=== PATIENT | male | born 1945 | race Caucasian/White ===

== ENCOUNTER → 2020-07-12 10:57 | Outpatient (CLI) | payer MEDICARE, SELFPAY ==
--- NOTE | ~2020-07-12 | XR_ITS ---
EXAMINATION: XR abdomen/kub 1V INDICATION: Unspecified abdominal pain TECHNIQUE: Supine views of the abdomen were obtained on 2 radiographs. COMPARISON: None FINDINGS: There are no dilated loops of bowel. The visualized lung bases are clear. No abnormal calci fications are identified. There is moderate osteoarthritis of the hips. IMPRESSION: 1. No radiographic correlate for the patient's symptoms. Reviewed, dictated and finalized at location A. ELLANEOUS MACHINE OPERATOR
== END ==
PROVIDERS: PCP Internal Medicine; Visit Provider Internal Medicine
DX: R10.9 Unspecified abdominal pain (principal)
CPT/HCPCS: 74018

== ENCOUNTER 2020-07-16 15:16 | Outpatient (CLI) | payer MEDICARE, SELFPAY | END 2020-07-16 15:17 | disposition home or self-care (01) | PROVIDERS: PCP Internal Medicine | DX: Z23 Encounter for immunization (principal) | CPT/HCPCS: 0001A; 91300 ==

== ENCOUNTER 2020-08-06 15:14 | Outpatient (CLI) | payer MEDICARE, SELFPAY | END 2020-08-06 15:15 | disposition home or self-care (01) | LOC: ANHCOVIDVC 15:14 | PROVIDERS: PCP Internal Medicine | DX: Z23 Encounter for immunization (principal) | CPT/HCPCS: 0002A; 91300 ==

== ENCOUNTER 2022-01-23 10:40 | Outpatient (CLI) | payer MEDICARE, SELFPAY ==
[2022-01-23 21:26] LABS: Albumin Level 4.6 g/dL (3.5-5.1)
[2022-01-23 21:27] LABS: Alanine Aminotransferase 23 U/L (6-50); Alkaline Phosphatase 62 U/L (38-126); Anion Gap 11 mmol/L (8-16); Aspartate Amino Transferase 40 U/L (17-59); Bilirubin,Total 0.7 mg/dL (0.2-1.3); Blood Urea Nitrogen 21 mg/dL (9-20); Calcium 8.6 mg/dL (8.4-10.2); Carbon Dioxide 32 mmol/L (22-30); Chloride 96 mmol/L (98-107); Cholesterol 223 mg/dL (0-200); Estimated Glomerular Filt Rate > 60; Glucose 179 mg/dL (65-110); HDL Direct 57 mg/dL; Potassium 5.3 mmol/L (3.4-5.0); Sodium 139 mmol/L (137-145); Triglycerides 126 mg/dL (<150)
[2022-01-23 21:30] LABS: LDL Cholesterol Direct 135 mg/dL
== END 2022-01-23 10:41 | disposition home or self-care (01) ==
LOC: ANHGOSHLAB 10:43
PROVIDERS: PCP Family Medicine; Visit Provider Family Medicine
DX: E78.5 Hyperlipidemia, unspecified (principal); I10 Essential (primary) hypertension
CPT/HCPCS: 36415; 80053; 80061

== ENCOUNTER 2023-02-12 11:43 | Outpatient (CLI) | payer MEDICARE, SELFPAY ==
[2023-02-12 19:27] LABS: Alanine Aminotransferase 24 U/L (6-50); Albumin Level 4.4 g/dL (3.5-5.1); Alkaline Phosphatase 62 U/L (38-126); Anion Gap 3 mmol/L (8-16); Aspartate Amino Transferase 33 U/L (17-59); Bilirubin,Total 0.6 mg/dL (0.2-1.3); Blood Urea Nitrogen 19 mg/dL (9-20); Calcium 9.2 mg/dL (8.4-10.2); Carbon Dioxide 36 mmol/L (22-30); Chloride 100 mmol/L (98-107); Cholesterol 237 mg/dL (0-200); Estimated Glomerular Filt Rate 59; Glucose 127 mg/dL (65-110); HDL Direct 39 mg/dL; Potassium 4.9 mmol/L (3.4-5.0); Sodium 139 mmol/L (137-145); Triglycerides 165 mg/dL (<150)
[2023-02-12 19:38] LABS: LDL Cholesterol Direct 143 mg/dL
[2023-02-12 21:35] LABS: Hemoglobin A1C 6.3 % (<5.7)
== END 2023-02-12 11:44 | disposition home or self-care (01) ==
LOC: ANHGOSHLAB 11:44
PROVIDERS: PCP Family Medicine; Visit Provider Family Medicine
DX: R73.9 Hyperglycemia, unspecified (principal); Z13.220 Encounter for screening for lipoid disorders; Z13.228 Encounter for screening for other metabolic disorders
CPT/HCPCS: 36415; 80053; 80061; 83036

== ENCOUNTER 2023-07-22 13:34 | Emergency (ER) | payer MEDICARE, SELFPAY ==
[2023-07-22 13:47] VITALS: BP 173/89; PULSE 62; RESP 18; TEMP 36.4; O2SAT 96
--- NOTE | 2023-07-22 14:11 | ED.LOWEXIN ---
HPI - Extremity Injury (Lower) General Chief Complaint: Extremity Injury, Lower Stated Complaint: toe pain Source: patient Mode of arrival: ambulatory Limitations: no limitations History of Present Illness HPI Narrative: 78-year-old male presented with daughter for complaint of left foot pain, onset today. Daughter states the left great toe and 2nd toe have some swelling and redness. Great toe has fungal infection. They have been applying Neosporin. Denies drainage, foot swelling, numbness, tingling, or weakness. Related Data Home Medications Medication Instructions Recorded Confirmed cetirizine 10 mg tablet (Zyrtec) 10 mg PO DAILY 01/23/22 07/22/23 multivitamin 1 tablet PO DAILY 01/23/22 07/22/23 lactobacillus combination no.8 3 cell 07/22/23 billion cell capsule Allergies Allergy/AdvReac Type Severity Reaction Status Date / Time iodine Allergy Intermediate Anaphylaxis Verified 07/22/23 13:51 Tetanus Vaccines and Toxoid Allergy Mild Anaphylaxis Verified 07/22/23 13:51 Review of Systems Review of Systems: CONSTITUTIONAL: Denies body aches, fever, chills CARDIOVASCULAR: Denies chest pain, palpitations, or edema. RESPIRATORY: Denies change in cough or dyspnea. GASTROINTESTINAL: Denies abdominal pain, nausea, vomiting, or diarrhea. SKIN: Reports redness and swelling left toes Denies rash, itching, or wounds. MUSCULOSKELETAL: Denies back pain, joint pain, or myalgia. NEUROLOGIC: Denies headache, numbness, tingling, or weakness. 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 Chronic, continuous use of opioids Family History Family History Father Acute myocardial infarction Social History Social History Smoking status: Current every day smoker Alcohol intake: current Lack of Transportation: No Lack of Food: Never True Current Housing: I Have Housing Concerned About Future Housing: No Difficulty Paying Gas/Electric Bills: No Difficulty Paying for Meds: No Currently Unemployed: No Education: High School Diploma/GED Difficulty w/ Childcare or Family Care: No Comments At time of signature, I have reviewed and agree with nursing past medical, surgical, social and family history unless otherwise noted. Please see nursing chart for further information. There is no relevant family history pertinent to the presenting complaint Exam Narrative: GENERAL: Well-appearing CHEST: Speaks in full sentences. No respiratory distress. Lungs diminished with exp wheezing. HEART: Regular rate and rhythm. Normal and equal peripheral pulses. EXTREMITIES: Left foot has normal strength and sensation, normal range of motion to ankle and toes. Mild erythema and swelling to great and 2nd toe, Great toe with onychomycosis. Minimal paronychia to 2nd toe unable to drain. no active drainage. No swelling to foot. No point tenderness. No open wounds, or obvious deformity; alignment normal, pulse palpable and equal bilaterally, skin warm, dry, pink. Capillary refill less than 3 seconds. SKIN: Warm, dry, no rash. NEURO: Alert and oriented x3. PSYCH: Normal mood and affect Course Course Emergency Course: Patient is aware of diagnosis, understands and agrees to treatment plan. Anticipatory guidance given. Patient agrees to follow-up as directed and is aware of reasons to seek care at the emergency department. Portions of this record may have been created with voice recognition software Level of Care: Express Care Visit Vital Signs Vital signs: Vital Signs Temperature 97.6 F 07/22/23 13:47 Pulse Rate 62 07/22/23 13:47 Respiratory Rate 18 07/22/23 13:47 Blood Pressure 173/89 H 07/22/23 13:47 Pulse O
== END 2023-07-22 14:26 | disposition home or self-care (01) ==
PROVIDERS: Emergency Provider Nurse Practitioner Family; PCP Family Medicine
DX: L08.9 Local infection of the skin and subcutaneous tissue, unspecified (principal); B35.1 Tinea unguium; L03.032 Cellulitis of left toe; F17.200 Nicotine dependence, unspecified, uncomplicated
CPT/HCPCS: 99213; G0463

== ENCOUNTER 2023-09-06 21:06 | Emergency (ER) | payer MEDICARE, SELFPAY ==
--- NOTE | 2023-09-06 21:07 | PC.NURSE ---
ETT placed by EMS WHEEL BORER with 7.5 ETT and 27 at the lip with stabilization device. Respiratory at bedside for confirmation and ventilation. Pulse check at 2106 showing PEA. CPR resumed. 1 mg Epinephrine administered via IO at 2107. 50 mEq Sodium Bicarb administered at 2109 via IO. 1 mg Epinephrine administered at 2109. 50 mEq Sodium Bicarb administered at 2110 IO. Pulse check at 2111 with ultrasound by EDP- PEA shown on the monitor. CPR resumed. 1 mg of Epinephrine administered at 2112. 50 mEq Sodium Bicarb administered at 2113. 20 G IV established left hand at 2113 by Emily Paul RN. Pulse check at 2114 by EDP with femoral doppler- no pulse detected with PEA on the monitor. CPR resumed. 1 mg Epinephrine administered IO at 2117. Pulse check at 2119 showing PEA. Patient's abdomen shown to be increasingly distended with CPR; mottling noted on distal extremities and head. 1 mg of Epinephrine administered at 2120 via IO. Pulse check at 2122 persistent PEA. CPR resumed. 1 mg of Epinephrine administered IO. EDP at bedside 2123 with orders to terminate resuscitation. Time of 2125.
--- NOTE | 2023-09-06 21:29 | ED.GENADULT ---
HPI - General Adult General Chief complaint: Cardiac Arrest/CPR Stated complaint: Cardiac arrest Time Seen by Provider: 09/06/23 21:27 History of Present Illness HPI narrative: Patient is a 78-year-old gentleman who presents emergency department with chief complaint of cardiac arrest. Per the family the patient has been extremely weak today had a bowel movement on himself earlier the family had to help him get cleaned up. Patient then laid in bed most of the day to be helped to the bathroom and then was walked back to his bed the family got him to give him his evening pills and the patient became unresponsive EMS was called the patient was found to be in cardiac arrest. The family does report that the patient is a DNR do not intubate but this was not conveyed to EMS as the family was very upset at the time of the event. ACLS protocols were initiated by EMS pre-hospital the patient was intubated the pre-hospital and a CPR assist device was placed on the patient. The patient had approximately 30 minute down time prior to arrival at the hospital. Related Data Home Medications Medication Instructions Recorded Confirmed cetirizine 10 mg tablet (Zyrtec) 10 mg PO DAILY 01/23/22 08/20/23 multivitamin 1 tablet PO DAILY 01/23/22 08/20/23 lactobacillus combination no.8 3 cell 07/22/23 08/20/23 billion cell capsule Allergies Allergy/AdvReac Type Severity Reaction Status Date / Time iodine Allergy Intermediate Anaphylaxis Verified 08/20/23 12:00 Tetanus Vaccines and Toxoid Allergy Mild Anaphylaxis Verified 08/20/23 12:00 Review of Systems Review of Systems: A 10 system review of systems was completed on the patient and is negative except for what is stated in the HPI. Nursing and ancillary documentation was reviewed. 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 HEAD: Normocephalic, atraumatic. EYES: Pupils fixed and dilated. ENT: Nares clear, no rhinorrhea or epistaxis. Mucous membranes moist. NECK: Supple. CHEST: Clear to auscultation right now with assisted ventilation with endotracheal tube. HEART: Absent cardiac sounds. Normal peripheral pulses with compressions. ABDOMEN: Soft, nontender, nondistended, normal active bowel sounds. EXTREMITIES: No signs of trauma SKIN: Warm, dry, no rash. NEURO: Unresponsive PSYCH: Unresponsive Medical Decision Making MDM Narrative Medical decision making narrative: ACLS protocols were continued upon arrival. The patient remained in pulseless electrical activity. Bedside ultrasound was performed that showed no cardiac activity. As the ACLS protocols were continued on the patient the family arrived in discussion with the family the patient had an active DNR DNI and would not want to be on a ventilator and did not want chest compressions performed. Upon finding this information the patient was still in [place] resuscitative efforts were ceased at this time. Patient was pronounced at 9:26 p.m. Discharge Plan Discharge Clinical Impression: Cardiopulmonary arrest Patient Disposition: Condition: Prescriptions: No Action Adult Probiotic 3 billion cell Capsule
--- NOTE | 2023-09-06 21:49 | PC.NURSE ---
Leonard at [facility] called at [phone].
--- NOTE | 2023-09-06 21:50 | PC.NURSE ---
Gideon at [facility] office notified. will present to er
--- NOTE | 2023-09-06 21:52 | PC.NURSE ---
message left with patients PMD Dr Andrade Mcfarlane to notify of patient
--- NOTE | 2023-09-06 21:58 | PC.NURSE ---
Acquisition Lead contacted by Katy ramirez RN. Family at bedside.
[2023-09-06 21:59] VITALS: O2SAT 98
--- NOTE | 2023-09-06 22:06 | PC.NURSE ---
Roma from [facility] called stating patient not candidate for donation
--- NOTE | 2023-09-06 22:27 | PC.NURSE ---
[facility] called to notify them of familys wishes to use their services
== END 2023-09-07 00:52 | disposition expired ==
PROVIDERS: Emergency Provider Emergency Medicine; PCP Family Medicine
DX: I46.9 Cardiac arrest, cause unspecified (principal); Z66 Do not resuscitate; Z87.891 Personal history of nicotine dependence
CPT/HCPCS: 92950; 96374; 96375; 99285; J0171